=== PATIENT | female | born 1955 | race Caucasian/White ===

== ENCOUNTER 2024-04-02 09:51 | Day surgery (SDC) | payer MEDICARE, BC ==
[~2024-04-02] VITALS: Ht 170.2 cm; Wt 72.3 kg
[2024-04-02] VITALS (20 sets, daily range): BP systolic 91–137; BP diastolic 54–74
[~2024-04-02 09:51] MED LIST: Bentyl20 MG PO; CLIMARA1 EACH; ESTRADIOL CREAM VAG; GEMTESA75 MG PO; LISI5 PO; Naprosyn500 MG PO
[2024-04-02] MEDS ORDERED: Chlorhexidine Mouth Care 15 ML UDC MT SCH (10:25)
[2024-04-02] MEDS ORDERED: Ropivacaine 0.5% HCl/Pf 123.125 MG,EPINEPHrine HCL 0.25 MG,Ketorolac Tromethamine 15 MG... INFIL SCH (10:25)
[2024-04-02] MEDS ORDERED: CeFAZolin Sodium 2,000 MG in NS 100 ML IV SCH ×2 (10:25→21:00)
[2024-04-02] MEDS ORDERED: Lactated Ringer's 1,000 ML IV SCH ×2 (10:25→11:10)
[2024-04-02] MEDS ORDERED: Tranexamic Acid 100 ML IV SCH (10:26)
[2024-04-02] MEDS ORDERED: Promethazine HCl 25 MG Tab PO PRN (11:00)
[2024-04-02] MEDS ORDERED: Bisacodyl 10 MG Supp PR PRN (11:00)
[2024-04-02] MEDS ORDERED: Ondansetron HCl 2 MG / ML 2ML Vial IV PRN (11:05)
[2024-04-02] MEDS ORDERED: DiphenhydrAMINE HCL 25 MG Cap PO PRN (11:05)
[2024-04-02] MEDS ORDERED: Magnesium Hydroxide Conc 10 ML UDC PO PRN (11:05)
[2024-04-02] MEDS ORDERED: HYDROmorphone HCl/Pf 1MG SYR IV PRN (11:05)
[2024-04-02] MEDS ORDERED: Metoclopramide HCl 5MG / ML 2ML Vial IV PRN (11:05)
[2024-04-02] MEDS ORDERED: OxyCODONE HCL 5 MG TAB PO PRN ×2 (11:10)
[2024-04-02] MEDS ORDERED: Acetaminophen 500 MG Tab PO SCH (11:30)
--- NOTE | 2024-04-02 11:43 | NUR ---
History, Chart, Medications and Allergies reviewed before start of procedure. Pre-Op teaching done. Pt verbalizes understanding. Ambulatory in Day Surgery WITH STEADY GAIT. PT STATES 2 RINGS ARE UNABLE TO BE REMOVED. BOTH RINGS TAPED AND REFUSAL PAPER SIGNED. PT GAVE GLASSES TO .
[2024-04-02] MEDS ORDERED: Ketorolac Tromethamine 15mg Vial IV SCH (12:00)
[2024-04-02] MEDS ORDERED: Midazolam HCl 1MG / ML 2ML Vial IV ONE (12:10)
[2024-04-02] MEDS ORDERED: Midazolam HCl 1MG / ML 2ML Vial ONE (12:17)
[2024-04-02] MEDS ORDERED: DiphenhydrAMINE HCl 50 MG/ML 1ML Vial ONE (12:42)
[2024-04-02] MEDS ORDERED: Famotidine 10 MG/ML 2ML Vial IV SCH (12:45)
[2024-04-02] MEDS ORDERED: DiphenhydrAMINE HCl 50 MG/ML 1ML Vial IV SCH (12:45)
[2024-04-02] MEDS ORDERED: propofoL 100 ML IV ONE (12:47)
[2024-04-02] MEDS ORDERED: Dexamethasone Sod Phos 10 MG/ML 1ML VIAL ONE (13:05)
[2024-04-02] MEDS ORDERED: Ondansetron HCl 2 MG / ML 2ML Vial ONE (13:05)
[2024-04-02] MEDS ORDERED: FentaNYL Citrate 50 MCG/ML 2 ML Injection ONE (14:52)
[2024-04-02] MEDS ORDERED: Dicyclomine HCl 20 MG Tab PO SCH (18:00)
--- NOTE | 2024-04-02 19:43 | NUR ---
SHIFT SUMMARY SHORTLY AFTER ARRIVAL TO SURGICAL UNIT, PT BEGAN TO C/O SEVERE "DARIANA HORSE" PAIN TO L LOWER SIDE OF KNEE. TRIED EXTRA ICE PACK, ELEVATION, MASSAGE, BUT PT STRONGLY WISHED TO TRY HEAT. K PAD APPLIED TO L KKNEE w/ RELIEF. HAS ONLY TAKEN IN SIPS OF WATER & SMALL AMOUNT OF DINNER. UP TO BATHROOM BUT UNABLE TO VOID. (I/O CATH IN PACU)
[2024-04-02] MEDS ORDERED: Docusate Sodium 100 MG Cap PO SCH (21:00)
[2024-04-03] VITALS (10 sets, daily range): BP systolic 79–117; BP diastolic 50–77
[2024-04-03 04:55] LABS: BASOPHILS ABSOLUTE AUTO 0.01 K/mm3 (0.00-0.23); BASOPHILS PERCENT AUTO 0 % (0-2); EOSINOPHILS PERCENT AUTO 0 % (0-6); Hematocrit 30.9 % (33.0-51.0); Hemoglobin 10.5 g/dL (11.5-16.0); IMMATURE GRAN ABSOLUTE AUTO 0.05 K/mm3 (0.00-0.10); IMMATURE GRAN PERCENT AUTO 0 % (0-1); LYMPHOCYTES ABSOLUTE AUTO 0.69 K/mm3 (0.84-5.20); LYMPHOCYTES PERCENT AUTO 5 % (21-46); MONOCYTES ABSOLUTE AUTO 1.03 K/mm3 (0.16-1.47); MONOCYTES PERCENT AUTO 8 % (4-13); Mean Corpuscular HGB 31.1 pg (26.0-34.0); Mean Corpuscular Volume 91 fL (80-100); NEUTROPHILS ABSOLUTE AUTO 11.62 K/mm3 (1.96-9.15); NEUTROPHILS PERCENT AUTO 87 % (41-73); Platelet Count 147 K/mm3 (150-400); RDW Coefficient Variation 12.1 % (11.7-14.2); RDW Standard Deviation 40.6 fL (35.1-46.3); Red Blood Cell Count 3.38 M/mm3 (3.80-5.20)
[2024-04-03] MEDS ORDERED: CeFAZolin Sodium 2,000 MG VIAL ONE (05:22)
[2024-04-03] MEDS ORDERED: NS 100 ML IV ONE (05:22)
[2024-04-03 05:40] LABS: Calcium, Blood 8.4 mg/dL (8.5-10.1); Creatinine, Blood 0.62 mg/dL (0.40-1.00); Potassium, Blood 4.5 mmol/L (3.5-5.5)
--- NOTE | 2024-04-03 06:02 | NUR ---
SUMMARY- PT HAS BEEN RESTING COMFORTABLY. PT PAIN MANAGED WELL PER ORDERS. PT HAS BEEN AMBULATING WELL WITH GB AND FWW. PT DRESSING IS C/D/I. PT IS CURRENTLY DRESSED AND IN CHAIR. PT HAS NO COMPLAINTS. CALL LIGHT IN REACH.
[2024-04-03] MEDS ORDERED: Misc. Tablet PO SCH (09:00)
[2024-04-03] MEDS ORDERED: Lisinopril 5 MG Tab PO SCH (09:00)
[2024-04-03] MEDS ORDERED: Aspirin 81 MG Chew PO SCH (09:00)
--- NOTE | 2024-04-03 09:10 | NUR ---
HYPOTENSIVE EVENT CALLED TO [facility] WHERE PT WAS FOUND TO BE IN PASSENGER OF CAR SIMULATOR CHAIR. EYES WERE CLOSED BUT OPENED EASILY WHEN ASKED. VS CHARTED. REPORTS DIZZINESS & BLURRED VISION. NOT DIAPHORETIC OR SHAKY; CALM & COOPERATIVE. ALEJA TO TRANSFER w/ ASSISTANCE TO RECLINER & PUT INTO [place]. ROLLED BACK TO ROOM. IVF STARTED & NEW ORDER TO GIVE IVF BOLUS.
[2024-04-03] MEDS ORDERED: Lactated Ringer's 500 ML IV ONE (10:15)
[2024-04-03] MEDS ORDERED: ASPI81CH PO (14:29)
--- NOTE | 2024-04-03 15:15 | NUR ---
DISCHARGE PT HAS WORKED w/ THERAPY X 2. STILL HAS SOME SLIGHT LIGHTHEDEDNESS BUT FEELS OCMFORTABLE AMBULATING & GOING HOME. INSTRUCTED TO CALL DR APONTE IF IT CONTINUES IT COULD BE RELATED TO OXYCODONE. ENCOURAGED TO DRINK PLENTLY OF WATER & INSTRUCTED TO GET UP SLOWLY. PAIN WELL CONTROLLED. EATING, DRINKING, & VOIDING WELL. AMINA & POLAR PACK SENT w/ PT. ESCORTED OUT VIA W/C.
[2024-04-06] MEDS ORDERED: Estradiol Vag Cream 0.1 MG/G 42.5 GM Tube VAG SCH (09:00)
== END 2024-04-03 15:13 | disposition home or self-care (01) ==
LOC: ORSCMMR 09:51 → ORD 11:00 → SURS 15:22 → ORSCMMR 23:23
PROVIDERS: Orthopaedic Surgery
PROC: 0SRD0JA Replacement of Left Knee Joint with Synthetic Substitute, Uncemented, Open Approach (ICD-10-PCS; principal; 2024-04-02 11:00)
DX: M17.12 Unilateral primary osteoarthritis, left knee (principal); I10 Essential (primary) hypertension; Z79.899 Other long term (current) drug therapy
CPT/HCPCS: 36415; 73560-LT; 80048; 85025; 97110; 97116; 97162; A9270; C1776; J0171; J0690; J0735; J1100; J1200; J1885; J2250; J2405; J2704; J2795; J3010; J7120